=== PATIENT | male | born 1995 | race Caucasian/White ===

== ENCOUNTER 2016-09-16 11:28 | Emergency (ER) | payer OTHER ==
[~2016-09-16] VITALS: Ht 180.3 cm; Wt 117.9 kg
[~2016-09-16 11:28] MED LIST: ACETAMINOPHEN-1 EAC1 ORAL; AMLODIPINE BESYL5 MG ORAL; AZITHROMYCIN250 MG ORAL; BENADRYL50 MG ORAL; IBUPROFEN600 MG ORAL; UNKNOWN BP MED; UNOBMED
[2016-09-16] MEDS ORDERED: Lidocaine 2% 20mg/ml/Epi 0.005mg/ml 20ml vial ONE (11:38)
[2016-09-16 11:40] VITALS: BP 130/85
[2016-09-16] MEDS ORDERED: Lidocaine 1% 10mg/ml/Epi 0.005mg/ml 30ml vial INJ ONE (11:45)
[2016-09-16] MEDS ORDERED: ceFAZolin 1gm/50ml Premix 50 ML IVPB ONE (11:45)
[2016-09-16] MEDS ORDERED: ceFAZolin 1gm in D5W 55ml IVP ONE (12:30)
[2016-09-16] MEDS ORDERED: Hydrogen Peroxide 120ml Bottle TOPIC ONE (12:45)
[2016-09-16] MEDS ORDERED: NORCO 5-325 TA1 EACH ORAL (13:12)
[2016-09-16] MEDS ORDERED: KEFLEX500 MG ORAL (13:12)
[2016-09-16] MEDS ORDERED: TdaP Vaccine 0.5ml Syr IM ONE (13:15)
[2016-09-16] MEDS ORDERED: Cephalexin 500mg cap ORAL ONE (13:15)
[2016-09-16] MEDS ORDERED: Bacitracin Oint UD TOPIC ONE (13:15)
[2016-09-16 13:55] VITALS: BP 104/64
--- NOTE | 2016-09-16 14:59 | Emergency Room Report ---
History of Present Illness General Chief Complaint: Laceration Source: Patient Present Illness HPI Patient is a 21-year-old male who presented after having increased left leg laceration. Patient was noted to have increased pain after accidentally cutting himself with a chainsaw. The patient denied any had difficulty standing. The patient noticed minimal bleeding initially. The patient reports having no recent tetanus vaccine. The patient had injury approximately 30 minutes prior to arrival Allergies: Coded Allergies: No Known Allergies (Unverified , 02/04/13) Patient History Past Medical History: see triage record Reviewed Nursing Documentation: PMH: Agreed, PSxH: Agreed Nursing Documentation-PMH Past Medical History: No Stated History Review of Systems All Other Systems: negative except mentioned in HPI Physical Exam Vital Signs Date Time Temp Pulse Resp B/P Pulse Ox O2 Delivery O2 Flow Rate FiO2 09/16/16 11:33 99.0 106 18 130/85 97 Room Air General Appearance: well appearing, no apparent distress, alert, GCS 15 Head: normocephalic, atraumatic ENT: hearing grossly normal, normal voice Neck: full range of motion, supple Respiratory: no respiratory distress, speaking full sentences Cardiovascular #1: normal inspection, regular rate, rhythm Gastrointestinal: normal inspection, non tender, soft Musculoskeletal: normal inspection, back normal, no calf tenderness Neurologic: normal inspection, alert, oriented x3, normal gait Psychiatric: mood/affect normal Skin: no rash, other - laceration to left thigh just above patella Procedures Laceration/Wound Repair Laceration/Wound Repair : Consent: Verbal Wound Location: lower extremity Wound's Depth, Shape: superficial Wound Length (cm): 10 Wound Explored: contaminated Irrigated w/ Saline (ccs): 150 Betadine Prep?: Yes Anesthesia: Lidocaine w/ Epi Volume Anesthetic (ccs): 8 Wound Debrided: moderate Wound Repaired With: meera - 11 Layer Closure?: No Patient Tolerated: Well Complications: None Progress patient had near syncopal episode due to vasovagal reaction during anesthetic administration. Medical Decision Making Diagnostic Impression: Primary Impression: Laceration ER Course Patient presented for laceration. Differential diagnoses included foreign body , nerve injury, arterial injury among others.The patient's laceration was irrigated copiously.There did not appear to be any joint involvement.The patient was given oral Keflex and was closed with skin meera. The patient is advised to follow up with primary care doctor in 3 days for wound check. Patient is advised to return if any worsening condition or if any changes in status that are concerning.X-ray imaging of the left knee 3 views interpreted by me showed notable soft tissue defect without evident fracture normal bony alignment Last Vital Signs Date Time Temp Pulse Resp B/P Pulse Ox O2 Delivery O2 Flow Rate FiO2 09/16/16 11:40 99.0 108 18 130/85 97 Room Air Status: improved Disposition: HOME, SELF-CARE Condition: Stable Scripts Cephalexin* (KEFLEX*) 500 Mg Capsule 500 MG ORAL Q6H, #28 CAP 0 Refills Prov: Asim Valenzuela 09/16/16 Hydrocodone Bit/Acetaminophen 5-325* (NORCO 5-325*) 1 Each Tablet 1 TAB ORAL Q6H Y for For Pain, #15 TAB 0 Refills Prov: Asim Valenzuela 09/16/16 Patient Instructions: Laceration Care, Adult Asim Valenzuela Sep 16, 2016 14:59
--- NOTE | 2016-09-16 16:51 | Diagnostic Imaging Report ---
Indications: PAIN, laceration on left knee Technique: Three views of the knee Comparison: None Findings: No acute fractures. No dislocations. Joint spaces are preserved. No radiopaque foreign body. Normal mineralization. There is unfused ossification center of the tibial tubercle and slight patella audelia. There is slight soft tissue irregularity superolateral to the patella, consistent with recent history of laceration. No radiopaque foreign body Impression: Evidence of soft tissue injury No acute bony trauma This agrees with the preliminary interpretation provided by the emergency room physician
== END 2016-09-16 13:55 | disposition home or self-care (01) ==
LOC: EMR 11:56
DX: S81.012A Laceration without foreign body, left knee, initial encounter (principal); Z23 Encounter for immunization; W45.8XXA Other foreign body or object entering through skin, initial encounter; Y93.9 Activity, unspecified; Y92.9 Unspecified place or not applicable
CPT/HCPCS: 12034; 73562; 90471; 90715; 99284; Z7502

== ENCOUNTER → 2016-09-24 | Emergency (ER) | payer OTHER ==
[~2016-09-24] VITALS: Ht 180.3 cm; Wt 117.9 kg
[~2016-09-24] MED LIST changes: +BENTYL10 MG ORAL; +Bacitracin Oint UD TOPIC ONE; +KEFLEX500 MG ORAL; +NKM; +NORCO 5-325 TA1 EACH ORAL; +PEPCID20 MG ORAL; +ZOFRAN ODT4 MG ORAL
[2016-09-24 20:36] VITALS: BP 124/87
[2016-09-24 21:05] VITALS: BP 124/87
--- NOTE | 2016-09-24 21:55 | Emergency Room Report ---
History of Present Illness General Chief Complaint: Wound Recheck/Suture Removal Source: Patient Present Illness HPI Patient presents for evaluation of left lower extremity laceration Patient appears to have been here 10 days ago with a chainsaw injury to the left knee Reports that he feels area has been healing well After working on it today he noticed some minimal increased swelling Denies any erythema Allergies: Coded Allergies: No Known Allergies (Unverified , 02/04/13) Patient History Past Medical History: see triage record Pertinent Family History: none Reviewed Nursing Documentation: PMH: Agreed, PSxH: Agreed Nursing Documentation-PMH Past Medical History: No History, Except For Review of Systems All Other Systems: negative except mentioned in HPI Physical Exam Vital Signs Date Time Temp Pulse Resp B/P Pulse Ox O2 Delivery O2 Flow Rate FiO2 09/24/16 20:31 98.2 93 16 124/87 100 Room Air 09/24/16 20:36 98 Sp02 EP Interpretation: reviewed, normal General Appearance: well appearing, no apparent distress Head: normocephalic, atraumatic Eyes: bilateral eye EOMI, bilateral eye PERRL Musculoskeletal: other - [place] in place across the left anterior knee, no obvious dehiscence, mild swelling with mild effusion is noted, no erythema Neurologic: alert, oriented x3, responsive Skin: other - As above Medical Decision Making Diagnostic Impression: Primary Impression: Encounter for wound re-check ER Course After appropriate cleansing, 3 meera are removed The patient's healing process appears to be ongoing and further meera were not removed in order to prevent any dehiscence Patient will require repeat followup further evaluation prior to removal of other meera , Last Vital Signs Date Time Temp Pulse Resp B/P Pulse Ox O2 Delivery O2 Flow Rate FiO2 09/24/16 21:05 98.2 93 16 124/87 100 Room Air 98 Status: improved Disposition: HOME, SELF-CARE Condition: Improved Patient Instructions: Wound Check Additional Instructions: 3 Meera were removed today The other meera are left in to prevent further dehiscence Please recheck with her primary physician in the next 5-7 days He may also return here if not able to followup appropriately BEBETO BRIAN D.O. Sep 24, 2016 21:55
== END | disposition home or self-care (01) ==
LOC: EMR 20:50
DX: S81.012D Laceration without foreign body, left knee, subsequent encounter (principal); Z48.02 Encounter for removal of sutures
CPT/HCPCS: 99282

== ENCOUNTER 2016-10-06 20:40 | Emergency (ER) | payer OTHER ==
[~2016-10-06] VITALS: Ht 180.3 cm; Wt 117.9 kg
[~2016-10-06 20:40] MED LIST changes: -BENTYL10 MG ORAL; -Bacitracin Oint UD TOPIC ONE; -NKM; -PEPCID20 MG ORAL; -ZOFRAN ODT4 MG ORAL
[2016-10-06] MEDS ORDERED: NKM (21:13)
[2016-10-06 21:24] VITALS: BP 115/78
[2016-10-06 21:43] VITALS: BP 115/78
--- NOTE | 2016-10-06 23:57 | Emergency Room Report ---
History of Present Illness General Chief Complaint: Wound Recheck/Suture Removal Source: Patient Present Illness HPI Patient is a 21-year-old male who presented after a recent left knee laceration repair. Patient denied any fever or pain. Patient had preceding had partial removal of meera to his left knee. Patient denied any painful range of motion. He had not been having any fevers. He states he was doing well. He presented for staple removal. Allergies: Coded Allergies: No Known Allergies (Unverified , 02/04/13) Patient History Reviewed Nursing Documentation: PMH: Agreed, PSxH: Agreed Nursing Documentation-PMH Hx Hypertension: Yes Review of Systems All Other Systems: negative except mentioned in HPI Physical Exam Vital Signs Date Time Temp Pulse Resp B/P Pulse Ox O2 Delivery O2 Flow Rate FiO2 10/06/16 21:08 97.9 84 16 115/78 95 Room Air General Appearance: well appearing, no apparent distress, alert, GCS 15 Head: normocephalic, atraumatic ENT: hearing grossly normal, normal voice Neck: full range of motion, supple Respiratory: no respiratory distress, speaking full sentences Musculoskeletal: normal inspection, no calf tenderness Neurologic: normal gait Psychiatric: mood/affect normal Skin: no rash, other - healed laceration without evidence of infection Medical Decision Making Diagnostic Impression: Primary Impression: Removal of staple ER Course Patient presented for wound check. Differential diagnosis included was not limited to infected wound, nonhealed wound, neuroma, healed wound. The wound appears well-healed. [place] removed by me. Patient is advised to return if any worsening condition or if any changes in status that are concerning. Last Vital Signs Date Time Temp Pulse Resp B/P Pulse Ox O2 Delivery O2 Flow Rate FiO2 10/06/16 21:43 97.9 81 16 115/78 95 Room Air Status: improved Disposition: HOME, SELF-CARE Condition: Stable Patient Instructions: Wound Closure Removal Asim Valenzuela Oct 06, 2016 23:57
== END 2016-10-06 21:43 | disposition home or self-care (01) ==
LOC: EMR 21:20
DX: S81.012D Laceration without foreign body, left knee, subsequent encounter (principal); Z48.02 Encounter for removal of sutures; I10 Essential (primary) hypertension
CPT/HCPCS: 99282

== ENCOUNTER 2016-10-17 00:12 | Emergency (ER) | payer OTHER ==
[~2016-10-17] VITALS: Ht 180.3 cm; Wt 117.9 kg
[~2016-10-17 00:12] MED LIST changes: +NKM
[2016-10-17] MEDS ORDERED: Dicyclomine HCl 10mg/5ml oral soln ORAL ONE (01:00)
[2016-10-17] MEDS ORDERED: PEPCID20 MG ORAL (01:02)
[2016-10-17] MEDS ORDERED: ZOFRAN ODT4 MG ORAL (01:02)
[2016-10-17] MEDS ORDERED: BENTYL10 MG ORAL (01:02)
[2016-10-17 01:15] VITALS: BP 120/79
--- NOTE | 2016-10-17 02:04 | Emergency Room Report ---
History of Present Illness General Chief Complaint: Nausea, Vomiting, and Diarrhea Source: Patient Present Illness HPI 21 YOM presents with 2 days nausea/vomiting (last time 3 hours ago) and watery diarrhea. Denies abd pain. Denies urinary complaints, previous abd/pelvic surgery or other medical problems. Didnt take any OTC meds. Denies fever/ chills. Allergies: Coded Allergies: No Known Allergies (Unverified , 02/04/13) Patient History Past Medical History: none Past Surgical History: none Pertinent Family History: none Social History: Denies: alcohol use, drug use, smoking Immunizations: UTD Reviewed Nursing Documentation: PMH: Agreed, PSxH: Agreed Nursing Documentation-PMH Hx Hypertension: Yes Review of Systems All Other Systems: negative except mentioned in HPI Physical Exam Vital Signs Date Time Temp Pulse Resp B/P Pulse Ox O2 Delivery O2 Flow Rate FiO2 10/17/16 00:29 99.1 110 18 120/79 99 Room Air Sp02 EP Interpretation: reviewed, normal General Appearance: normal inspection, well appearing, no apparent distress, alert Head: atraumatic ENT: normal ENT inspection, hearing grossly normal, normal voice Neck: normal inspection, full range of motion, supple, no bony tend Respiratory: normal inspection, lungs clear, normal breath sounds, no respiratory distress, no retraction, no wheezing Gastrointestinal: normal inspection, normal bowel sounds, non tender, soft, non -distended, no guarding, no hernia, no pulsatile mass, no rebound Genitourinary: no CVA tenderness Musculoskeletal: normal inspection, back normal, normal range of motion, Ruthann' s Sign negative Neurologic: normal inspection, alert, oriented x3, responsive, speech normal Psychiatric: normal inspection, judgement/insight normal, mood/affect normal Skin: normal inspection, normal color, no rash Lymphatic: normal inspection Medical Decision Making Diagnostic Impression: Primary Impression: Nausea, vomiting, and diarrhea ER Course Likely viral gastroenteritis. VSS. Afebrile. Patient feels much better after zofran, bentyl given in ED. Tolerating PO Exam continues to be non-focal on serial exam of abdomen Likely viral gastroenteritis Low suspicion for acute bacterial or surgical process at this time Rx Pepcid, Zofran, bentyl Advised BRAT diet, fluids and PMD followup Understands to Return to ER for worsening, focal abd pain, fever/chills or inability to tolerate PO Last Vital Signs Date Time Temp Pulse Resp B/P Pulse Ox O2 Delivery O2 Flow Rate FiO2 10/17/16 01:15 99.1 91 18 120/79 99 Room Air Status: improved Disposition: HOME, SELF-CARE Condition: Improved Scripts Dicyclomine Hcl* (BENTYL*) 10 Mg Capsule 10 MG ORAL FOUR TIMES A DAY for diarrhea for 3 Days, #20 CAP Prov: LIZA STEELE M.D. 10/17/16 Famotidine (PEPCID) 20 Mg Tablet 20 MG ORAL BID for 7 Days, #14 TAB 0 Refills Prov: LIZA STEELE M.D. 10/17/16 Ondansetron Odt* (ZOFRAN ODT*) 4 Mg Tab.rapdis 4 MG ORAL Q6H Y for Nausea & Vomiting, #30 TAB 0 Refills Prov: LIZA STEELE M.D. 10/17/16 Referrals: [facility],REFERRING (PCP) Patient Instructions: Viral Gastroenteritis, Adult, [id number] Additional Instructions: - Take zofran as needed for nausea - BRAT diet - bananas/rice/apple sauce/toast - progress diet slowly - Bently as prescribed for diarrhea - Drink plenty of liquids - Take pepcid twice daily for 1 week - Return to ER for worsening abdominal pain to one particular area of your abdomen, fever/chills, inability to keep water down LIZA STEELE M.D. Oct 17, 2016 02:04
== END 2016-10-17 01:15 | disposition home or self-care (01) ==
LOC: EMR 00:51
DX: R11.2 Nausea with vomiting, unspecified (principal); R19.7 Diarrhea, unspecified; I10 Essential (primary) hypertension
CPT/HCPCS: 99284

== ENCOUNTER 2017-01-04 15:06 | Emergency (ER) | payer OTHER ==
[~2017-01-04] VITALS: Ht 185.4 cm; Wt 117.9 kg
[~2017-01-04 15:06] MED LIST changes: +BENTYL10 MG ORAL; +PEPCID20 MG ORAL; +ZOFRAN ODT4 MG ORAL
[2017-01-04 15:14] VITALS: BP 116/75
[2017-01-04] MEDS: Albuterol ud Inhalation HHN SCH ×2 (15:59→16:00)
--- NOTE | 2017-01-04 16:10 | Emergency Room Report ---
History of Present Illness General Chief Complaint: Upper Respiratory Illness Source: Patient Present Illness HPI 21 y/o male c/o SOB and cough x 23 weeks. States that he had URI sxs 2 weeks ago that improved but now over past 4 days has gotten severe assoc w/ SOB. States that there are no modifying factors and denies any hx of asthma or trauma or chest pain / pressure. States he tried using a humidifier at home w/o improvement. Admits that he uses tobacco for the past 1 year but has not smoked in the past 2 weeks. States sxs first began with his child who was diagnosed with bronchiolotis but then he and his both started experiencing symptoms. was at [place] and diagnosed with URI but given doxycycline for home stating she was told her CXR was very hazy appearing. Denies any current n/v/f/c /d, abd pain, back pain, neck pain, photophobia, phonophobia, CP or headache. Allergies: Coded Allergies: No Known Allergies (Unverified , 02/04/13) Patient History Past Medical History: see triage record Past Surgical History: none Pertinent Family History: none Social History: Reports: smoking Reviewed Nursing Documentation: PMH: Agreed, PSxH: Agreed Nursing Documentation-PMH Past Medical History: No Stated History Hx Hypertension: Yes Review of Systems All Other Systems: negative except mentioned in HPI Physical Exam Vital Signs Date Time Temp Pulse Resp B/P Pulse Ox O2 Delivery O2 Flow Rate FiO2 01/04/17 15:14 99.0 109 16 116/75 96 Room Air Sp02 EP Interpretation: reviewed, normal General Appearance: alert, GCS 15, non-toxic, mild distress Head: normocephalic, atraumatic Eyes: bilateral eye PERRL, bilateral eye normal inspection ENT: hearing grossly normal, normal pharynx, no angioedema, normal voice Neck: full range of motion, supple/symm/no masses Respiratory: chest non-tender, rales, rhonchi, speaking full sentences Cardiovascular #1: regular rate, rhythm, no edema, normal capillary refill Musculoskeletal: gait/station normal Neurologic: alert, oriented x3, responsive, motor strength/tone normal, sensory intact, speech normal Psychiatric: judgement/insight normal, memory normal, mood/affect normal, no suicidal/homicidal ideation Skin: normal color, no rash, warm/dry, well hydrated Lymphatic: no adenopathy Medical Decision Making PA Attestation Dr. Balderrama is my supervising physician with whom patient management has been discussed with. Diagnostic Impression: Primary Impression: Community acquired bacterial pneumonia ER Course Pt. presents to the ED c/o of cough and SOB Ddx considered but are not limited to bronchitis, pneumonia, viral upper respiratory tract infection Vital signs: are WNL, pt. is afebrile H&PE are most consistent with Pneumonia ORDERS: CXR ED INTERVENTIONS: Albuterol x 3, 500mg PO Azithromycin DISCHARGE: At this time pt. is stable for d/c to home. Will provide printed patient care instructions, and any necessary prescriptions. Care plan and follow up instructions have been discussed with the patient prior to discharge. Chest X-Ray Diagnostic Results EP Interpretation: Yes Number of Views: 1 Other Impression Increased pulmonary markings. Possible consolidation RML. No pneumothorax. Cardiac silhouette WNL. No pericarditis Last Vital Signs Date Time Temp Pulse Resp B/P Pulse Ox O2 Delivery O2 Flow Rate FiO2 01/04/17 16:35 108 18 97 21 01/04/17 15:59 Room Air 01/04/17 15:14 99.0 116/75 Status: improved Reevaluation Impression Reevaluated patient. Lungs have some wheezes and rales but patient feeling much better and would like to go home. Patient O2Sat 99% RA at bedside. Will treat for possible early pneumonia. Disposition: HOME, SELF-CARE Condition: Improved Scripts Albuterol Sulfate* (PROAIR HFA*) 8.5 Gm Hfa.aer.ad 2 PUFFS INH Q6H Y for Shortness of Breath, #8.5 GM 0 Refills Prov: SABRY,TAMEEM P.A. 01/04/17 Beclomethasone Dipropionate 40MCG Oral Inh (QVAR 40*) 7.3 Gm Aer.w.adap 2 PUFFS INH TWICE A DAY for 10 Days, #1 GM 0 Refills Prov: SABRY,TAMEEM P.A. 01/04/17 Azithromycin* (ZITHROMAX*) 250 Mg Tablet 250 MG ORAL DAILY for 4 Days, #4 TAB 0 Refills Take two tables once daily for 1 day, then one tablet once daily for 4 days. Prov: SABRY,TAMEEM P.A. 6/3/17 Referrals: [facility],REFERRING (PCP) Patient Instructions: Community-Acquired Pneumonia, Adult, Upper Respiratory Infection, Adult Additional Instructions: Take medication as directed. Drink plenty of fluids which include Gatorade and water. Get plenty of rest. Avoid taking medications on an empty stomach. If you have cough avoid dairy and cold beverages. If you have a fever, headache or body aches please take [id number] tylenol/motrin/advil unless a prescription for these symptoms have been given. If your symptoms are worsening or you have shortness or breath, severe headaches or chest pain, please call 911 or go to the ER. GREER GALLARDO Jan 04, 2017 16:10
[2017-01-04] MEDS ORDERED: Azithromycin 250mg tab ORAL ONE (16:15)
[2017-01-04 16:17] LABS: BASOPHILS % (AUTO) 0.9 % (0.0-2.0); EOSINOPHILS % (AUTO) 8.9 % (0.0-3.0); LYMPHOCYTES % (AUTO) 25.5 % (20.0-45.0); MEAN CORPUSCULAR HEMOGLOBIN 32.4 PG (27.0-31.0); MEAN CORPUSCULAR HGB CONC 38.7 G/DL (32.0-36.0); MEAN CORPUSCULAR VOLUME 84 FL (80-99); MEAN PLATELET VOLUME 7.3 FL (6.5-10.1); MONOCYTES % (AUTO) 7.6 % (1.0-10.0); NEUTROPHILS % (AUTO) 57.1 % (45.0-75.0); PLATELET COUNT 321 K/UL (150-450); RED BLOOD COUNT 5.53 M/UL (4.70-6.10); RED CELL DISTRIBUTION WIDTH 10.8 % (11.6-14.8); WHITE BLOOD COUNT 10.9 K/UL (4.8-10.8)
[2017-01-04] MEDS ORDERED: QVAR7.3 GM INH (16:49)
[2017-01-04] MEDS ORDERED: ZITHROMAX250 MG ORAL (16:49)
[2017-01-04] MEDS ORDERED: PROAIR HFA8.5 GM INH (16:49)
[2017-01-04 16:53] LABS: ALANINE AMINOTRANSFERASE 38 U/L (3-41); ANION GAP 14 (5-15); ASPARTATE AMINO TRANSFERASE 19 U/L (5-40); CALCIUM 9.7 mg/dL (8.6-10.2); CARBON DIOXIDE 28 mEQ/L (20-30); CHLORIDE 98 mEQ/L (98-107); GLOMERULAR FILTRATION RATE > 60 mL/min (>60); HEMOLYSIS 14; POTASSIUM 3.9 mEQ/L (3.4-4.9); SODIUM 140 mEQ/L (135-145); TOTAL PROTEIN 8.1 g/dL (6.6-8.7)
[2017-01-04 17:04] VITALS: BP 101/74
--- NOTE | 2017-01-06 08:52 | Diagnostic Imaging Report ---
Indication: Cough Comparison: 09/01/15 A single view chest radiograph was obtained. Findings: Cardiomediastinal appearance is within normal limits for age. Pulmonary vascularity is appropriate. The diaphragmatic contour is smooth and costophrenic angles are sharp. No pleural effusions are identified. The bones are unremarkable. Impression: No acute findings
== END 2017-01-04 17:13 | disposition home or self-care (01) ==
LOC: EMR 15:36
DX: J18.9 Pneumonia, unspecified organism (principal); R06.02 Shortness of breath; Z87.891 Personal history of nicotine dependence; I10 Essential (primary) hypertension
CPT/HCPCS: 36415; 71010; 80053; 83605; 85025; 87040; 94640; 94664; 99284; Q0144

== ENCOUNTER 2017-07-26 00:34 | Emergency (ER) | payer MEDICAID, OTHER ==
[~2017-07-26] VITALS: Ht 185.4 cm; Wt 117.9 kg
[~2017-07-26 00:34] MED LIST changes: +PROAIR HFA8.5 GM INH; +QVAR7.3 GM INH; +ZITHROMAX250 MG ORAL
[2017-07-26 00:45] VITALS: BP 135/86
[2017-07-26] MEDS ORDERED: GUAIFENESIN-CO118 M1 ORAL (01:05)
[2017-07-26] MEDS ORDERED: AZITHROMYCIN250 MG ORAL (01:05)
--- NOTE | 2017-07-26 01:06 | Emergency Room Report ---
History of Present Illness General Chief Complaint: Dyspnea/Respdistress Source: Patient Present Illness HPI Is a 21-year-old male with no past medical history. He gets frequent bronchitis. He presents with chief complaint of coughing for the last 3 weeks. Getting worse. Sputum is greenish now. Subjective fever chills but no nausea no vomiting. Nose also congested. Allergies: Coded Allergies: No Known Allergies (Unverified , 02/04/13) Patient History Past Medical History: see triage record, old chart reviewed Past Surgical History: none Pertinent Family History: none Social History: Denies: smoking Immunizations: other Reviewed Nursing Documentation: PMH: Agreed, PSxH: Agreed Nursing Documentation-PMH Hx Hypertension: Yes Review of Systems Eye: Denies: eye pain, blurred vision ENT: Denies: ear pain, nose congestion, throat swelling Respiratory: Reports: cough, shortness of breath Cardiovascular: Denies: chest pain, palpitations Gastrointestinal: Denies: abdominal pain, diarrhea, nausea, vomiting Musculoskeletal: Denies: back pain, joint pain Skin: Denies: rash Neurological: Denies: headache, numbness Endocrine: Denies: increased thirst, increased urine Hematologic/Lymphatic: Denies: easy bruising All Other Systems: negative except mentioned in HPI Physical Exam Vital Signs Date Time Temp Pulse Resp B/P (MAP) Pulse Ox O2 Delivery O2 Flow Rate FiO2 07/26/17 00:40 98.1 88 18 143/89 99 Room Air vitals normal Sp02 EP Interpretation: reviewed, normal General Appearance: well appearing, no apparent distress, alert Head: normocephalic, atraumatic Eyes: bilateral eye PERRL, bilateral eye EOMI ENT: hearing grossly normal, normal pharynx Neck: full range of motion, supple, no meningismus Respiratory: chest non-tender, lungs clear, normal breath sounds Cardiovascular #1: regular rate, rhythm, no murmur Gastrointestinal: normal bowel sounds, non tender, no mass, no organomegaly, no bruit, non-distended Musculoskeletal: back normal, gait/station normal, normal range of motion Psychiatric: mood/affect normal Skin: warm/dry Medical Decision Making Diagnostic Impression: Primary Impression: Atypical pneumonia ER Course Patient with a viral illness now complicated by pneumonia. Most likely viral in nature but since his been ongoing for 3 weeks ago and put on antibiotics. No evidence of sepsis, rest or distress. Last Vital Signs Date Time Temp Pulse Resp B/P (MAP) Pulse Ox O2 Delivery O2 Flow Rate FiO2 07/26/17 00:40 98.1 88 18 143/89 99 Room Air Status: unchanged Disposition: HOME, SELF-CARE Condition: Stable Scripts Azithromycin* (ZITHROMAX*) 250 Mg Tablet 250 MG ORAL DAILY, #6 TAB 0 Refills Take two tablets by mouth today, then take one tablet by mouth daily for four days Prov: MURALI HAIRSTON M.D. 07/26/17 Guaifenesin/Codeine Phos* (ROBITUSSIN AC*) 118 Ml Liquid 1 TSP ORAL Q6H Y for For Cough, #118 ML 0 Refills Prov: MURALI HAIRSTON M.D. 07/26/17 Additional Instructions: Followup with your Dr. in 7 days. Increase fluid. Return if symptom worsen. MURALI HAIRSTON M.D. Jul 26, 2017 01:05
[2017-07-26 01:10] VITALS: BP 129/84
[2017-07-26 01:15] VITALS: BP 129/84
== END 2017-07-26 01:15 | disposition home or self-care (01) ==
LOC: EMR 00:59
DX: J18.9 Pneumonia, unspecified organism (principal)
CPT/HCPCS: 99283

== ENCOUNTER 2018-03-11 19:48 | Emergency (ER) | payer MEDICAID ==
[~2018-03-11] VITALS: Ht 185.4 cm; Wt 120.2 kg
[~2018-03-11 19:48] MED LIST changes: +GUAIFENESIN-CO118 M1 ORAL
[2018-03-11 20:48] VITALS: BP 131/76
--- NOTE | 2018-03-11 20:49 | Emergency Room Report ---
History of Present Illness General Chief Complaint: General Complaint Source: Patient Present Illness HPI Patient is a 22-year-old male who presented after increased generalized weakness and total body cramping. Patient reports having been working out in the sun all day today and the having cramps to both legs as well as to his face. Patient had previous similar symptoms. Patient states he was drinking heavily yesterday. He denies any vomiting. He denies any diarrhea. He reports having normal urine color initially.The patient denies taking diuretics a prior history of diabetes. Allergies: Coded Allergies: No Known Allergies (Unverified , 02/04/13) Patient History Reviewed Nursing Documentation: PMH: Agreed; PSxH: Agreed Nursing Documentation-PMH Past Medical History: No Stated History Review of Systems All Other Systems: negative except mentioned in HPI Physical Exam Vital Signs Date Time Temp Pulse Resp B/P (MAP) Pulse Ox O2 Delivery O2 Flow Rate FiO2 03/11/18 20:09 98.3 121 16 131/76 95 98.2 Sp02 EP Interpretation: reviewed, normal General Appearance: normal inspection, well appearing, no apparent distress, alert, GCS 15 Head: atraumatic ENT: normal ENT inspection, hearing grossly normal, normal voice Neck: normal inspection, full range of motion, supple, no bony tend Respiratory: normal inspection, lungs clear, normal breath sounds, no respiratory distress, no retraction, no wheezing Cardiovascular #1: regular rate, rhythm, no edema Gastrointestinal: normal inspection, normal bowel sounds, non tender, soft, no guarding, no hernia Genitourinary: no CVA tenderness Musculoskeletal: normal inspection, back normal, normal range of motion Neurologic: normal inspection, alert, oriented x3, responsive, parts remover III-XII nml as tested, motor strength/tone normal, DTRs symmetric, speech normal Psychiatric: normal inspection, judgement/insight normal, mood/affect normal Skin: normal inspection, normal color, no rash Medical Decision Making Diagnostic Impression: Primary Impression: Dehydration Additional Impression: Muscle cramp ER Course Patient presented for muscle cramping. Differential diagnosis included was not limited to the cramps, dehydration, hypokalemia, hyponatremia among others. Because of complexity of patient's case laboratory testing and imaging studies were ordered.The patient given IV hydration. Laboratory testing was unremarkable. Patient was noted to have the recently been doing prolonged work in the sun. The patient is advised to continue IV hydration. Patient shows no evidence of rhabdomyolysis. The patient is advised return precautions. He was advised not to drink excessive alcohol.The patient is advised to follow up with primary care doctor in 1-2 days. Patient is advised to return if any worsening condition or if any changes in status that are concerning. This report is dictated with [employer] manager agency software which may occasionally lead to discrepancies related to use of this software. Labs Test 03/11/18 21:00 03/11/18 21:45 White Blood Count 11.0 K/UL (4.8-10.8) Red Blood Count 5.50 M/UL (4.70-6.10) Hemoglobin 15.8 G/DL (14.2-18.0) Hematocrit 46.0 % (42.0-52.0) Mean Corpuscular Volume 84 FL (80-99) Mean Corpuscular Hemoglobin 28.6 PG (27.0-31.0) Mean Corpuscular Hemoglobin Concent 34.3 G/DL (32.0-36.0) Red Cell Distribution Width 10.9 % (11.6-14.8) Platelet Count 272 K/UL (150-450) Mean Platelet Volume 7.4 FL (6.5-10.1) Neutrophils (%) (Auto) 65.3 % (45.0-75.0) Lymphocytes (%) (Auto) 23.2 % (20.0-45.0) Monocytes (%) (Auto) 7.8 % (1.0-10.0) Eosinophils (%) (Auto) 2.9 % (0.0-3.0) Basophils (%) (Auto) 0.8 % (0.0-2.0) Sodium Level 139 MMOL/L (136-145) Potassium Level 3.6 MMOL/L (3.5-5.1) Chloride Level 102 MMOL/L (98-107) Carbon Dioxide Level 28 MMOL/L (21-32) Anion Gap 9 mmol/L (5-15) Blood Urea Nitrogen 11 mg/dL (7-18) Creatinine 1.0 MG/DL (0.55-1.30) Estimat Glomerular Filtration Rate > 60 mL/min (>60) Glucose Level 94 MG/DL (74-106) Calcium Level 9.7 MG/DL (8.5-10.1) Total Bilirubin 0.3 MG/DL (0.2-1.0) Aspartate Amino Transf (AST/SGOT) 25 U/L (15-37) Alanine Aminotransferase (ALT/SGPT) 41 U/L (12-78) Alkaline Phosphatase 72 U/L (46-116) Total Creatine Kinase 230 U/L (26-308) Total Protein 8.5 G/DL (6.4-8.2) Albumin 4.2 G/DL (3.4-5.0) Globulin 4.3 g/dL Albumin/Globulin Ratio 1.0 (1.0-2.7) Urine Color Pale yellow Urine Appearance Clear Urine pH 7 (4.5-8.0) Urine Specific [place] 1.010 (1.005-1.035) Urine Protein Negative (NEGATIVE) Urine Glucose (UA) Negative (NEGATIVE) Urine Ketones Negative (NEGATIVE) Urine Occult Blood Negative (NEGATIVE) Urine Nitrite Negative (NEGATIVE) Urine Bilirubin Negative (NEGATIVE) Urine Urobilinogen Normal MG/DL (0.0-1.0) Urine Leukocyte Esterase 1+ (NEGATIVE) Urine RBC 0-2 /HPF (0 - 0) Urine WBC 0-2 /HPF (0 - 0) Urine Squamous Epithelial Cells None /LPF (NONE/OCC) Urine Bacteria Few /HPF (NONE) Last Vital Signs Date Time Temp Pulse Resp B/P (MAP) Pulse Ox O2 Delivery O2 Flow Rate FiO2 03/11/18 20:09 98.3 121 16 131/76 95 98.2 Status: improved Disposition: HOME, SELF-CARE Condition: Stable Referrals: [facility]ERR[facility] (PCP) Asim Valenzuela MD Mar 11, 2018 20:49
[2018-03-11 21:28] LABS: BASOPHILS % (AUTO) 0.8 % (0.0-2.0); EOSINOPHILS % (AUTO) 2.9 % (0.0-3.0); HEMOGLOBIN 15.8 G/DL (14.2-18.0); LYMPHOCYTES % (AUTO) 23.2 % (20.0-45.0); MEAN CORPUSCULAR VOLUME 84 FL (80-99); MONOCYTES % (AUTO) 7.8 % (1.0-10.0); NEUTROPHILS % (AUTO) 65.3 % (45.0-75.0); PLATELET COUNT 272 K/UL (150-450); RED CELL DISTRIBUTION WIDTH 10.9 % (11.6-14.8)
[2018-03-11 21:37] LABS: ANION GAP 9 mmol/L (5-15); BLOOD UREA NITROGEN 11 mg/dL (7-18); CALCIUM 9.7 MG/DL (8.5-10.1); CARBON DIOXIDE 28 MMOL/L (21-32); CHLORIDE 102 MMOL/L (98-107); POTASSIUM 3.6 MMOL/L (3.5-5.1); SODIUM 139 MMOL/L (136-145)
[2018-03-11 21:42] LABS: ALANINE AMINOTRANSFERASE 41 U/L (12-78); ALBUMIN 4.2 G/DL (3.4-5.0); ALKALINE PHOSPHATASE 72 U/L (46-116); ASPARTATE AMINO TRANSFERASE 25 U/L (15-37); BILIRUBIN,TOTAL 0.3 MG/DL (0.2-1.0); CREATINE KINASE 230 U/L (26-308)
[2018-03-11 22:07] VITALS: BP 129/74
[2018-03-11 22:09] VITALS: BP 129/74
[2018-03-11 22:22] LABS: APPEARANCE,URINE CLEAR; BILIRUBIN, URINE NEGATIVE (NEGATIVE); COLOR,URINE PALE YELLOW; GLUCOSE, URINE (UA) NEGATIVE (NEGATIVE); KETONES,URINE NEGATIVE (NEGATIVE); LEUKOCYTE ESTERASE ,URINE 1+ (NEGATIVE); NITRITE,URINE NEGATIVE (NEGATIVE); PH,URINE 7 (4.5-8.0); PROTEIN,URINE NEGATIVE (NEGATIVE); UROBILINOGEN,URINE NORMAL MG/DL (0.0-1.0)
--- NOTE | 2018-03-13 13:43 | Cardiology Report ---
APPROVED REPORT EKG Measurement Heart [id number] Sinus tachycardia Otherwise normal ECG
== END 2018-03-11 22:10 | disposition home or self-care (01) ==
LOC: EMR 20:20 → MERGE 20:20 → EMR 22:10
DX: E86.0 Dehydration (principal); R25.2 Cramp and spasm
CPT/HCPCS: 36415; 80053; 81001; 82550; 85025; 93005; 96360; 99284